=== PATIENT | male | born 1940 | race Caucasian/White ===

== ENCOUNTER 2016-09-05 15:00 | Inpatient (IN) | payer MEDICARE ==
[2016-10-06] MEDS ORDERED: METOCLOPRAMIDE 10 MG TABLET PO ONE (06:00)
[2016-10-06] MEDS ORDERED: FAMOTIDINE 20MG TABLET PO ONE (06:00)
[2016-10-06] MEDS ORDERED: CELECOXIB 100 MG CAPSULE PO ONE (06:00)
[2016-10-06] MEDS ORDERED: VANCOMYCIN HCL 1,000 MG in 0.9 % SODIUM CHLORIDE 250ML 250 ML IVPB ONE (06:00)
[2016-10-06] MEDS ORDERED: ACETAMINOPHEN 1,000 MG/100 ML BTL IV ONE (06:00)
[2016-10-06] MEDS ORDERED: MECLIZINE 25 MG TABLET PO ONE (06:00)
[2016-10-06 12:10] LABS: ABO GROUP A; ANTIBODY SCREEN NEGATIVE (NEGATIVE); RH TYPE POSITIVE
[2016-10-06] MEDS ORDERED: BUPIVACAINE LIPOSOME 266MG/20ML VIAL IV ONE (12:22)
[2016-10-06] MEDS ORDERED: BUPIVACAINE 0.5% W/EPI MPF 30 ML VIAL IVP ONE (12:22)
[2016-10-06] MEDS ORDERED: VANCOMYCIN HCL 1 GM VIAL IVPB ONE (12:22)
[2016-10-06] MEDS ORDERED: TRANEXAMIC ACID 1,000 MG/10 ML ML IV ONE (12:22)
[2016-10-06] MEDS ORDERED: PROPOFOL 10 MG/ML VIAL IV ONE (14:00)
[2016-10-06] MEDS ORDERED: LIDOCAINE 2% MDV (20MG/ML) 20ML VIAL IV ONE (14:00)
[2016-10-06] MEDS ORDERED: DIPHENHYDRAMINE HCL IV 50 MG/ML VIAL IVP ONE (14:00)
[2016-10-06] MEDS ORDERED: MIDAZOLAM HCL 2MG/2ML VIAL IV ONE (14:00)
[2016-10-06] MEDS ORDERED: FENTANYL PF 100MCG/2ML VIAL IV ONE (14:00)
[2016-10-06] MEDS ORDERED: HYDROCODONE/APAP 5/325MG TABLET PO PRN ×2 (14:42)
[2016-10-06] MEDS ORDERED: MAGNESIUM HYDROXIDE 30 ML UDC PO PRN (14:42)
[2016-10-06] MEDS ORDERED: AL HYDROX/MAG HYDROX 30ML UD PO PRN (14:42)
[2016-10-06] MEDS ORDERED: TRAMADOL HCL 50 MG TABLET PO PRN ×2 (14:42)
[2016-10-06] MEDS ORDERED: METOCLOPRAMIDE HCL 10 MG/2 ML VIAL IVP PRN (14:42)
[2016-10-06] MEDS ORDERED: DIPHENHYDRAMINE HCL 25 MG CAPSULE PO PRN (14:42)
[2016-10-06] MEDS ORDERED: ACETAMINOPHEN W/ CODEINE 300MG/60MG TABLET PO PRN ×2 (14:42)
[2016-10-06] MEDS ORDERED: ONDANSETRON HCL IV 4 MG/2 ML VIAL IVP PRN (14:42)
[2016-10-06] MEDS ORDERED: HYDROMORPHONE HCL 2 MG/ML VIAL IM PRN (14:42)
[2016-10-06] MEDS ORDERED: HYDROCODONE/APAP 7.5/325MG TABLET PO PRN ×2 (14:42)
[2016-10-06] MEDS ORDERED: NALOXONE 0.4 MG/1 ML VIAL IVP PRN (14:42)
[2016-10-06] MEDS ORDERED: ACETAMINOPHEN 325 MG TAB PO PRN (14:42)
[2016-10-06] MEDS ORDERED: KETOROLAC 30 MG/ML VIAL IVP PRN ×2 (14:42)
[2016-10-06] MEDS ORDERED: BISACODYL 10 MG SUPP RC PRN (14:42)
[2016-10-06] MEDS ORDERED: PROMETHAZINE HCL 12.5 MG in 0.9 % SODIUM CHLORIDE 100ML 50 ML IVPB PRN (14:42)
[2016-10-06] MEDS ORDERED: MORPHINE SULFATE 5 MG/ML PFS IVP PRN ×4 (14:42)
[2016-10-06] MEDS ORDERED: ACETAMINOPHEN W/ CODEINE 300MG/30MG TABLET PO PRN ×2 (14:42)
[2016-10-06] MEDS ORDERED: ZOLPIDEM TARTRATE 5 MG TABLET PO PRN (14:42)
[2016-10-06] MEDS ORDERED: HYDROMORPHONE HCL 1 MG/ML CPJ IM PRN (15:30)
[2016-10-06] MEDS ORDERED: DEXTROSE 5 % AND 0.9 % NACL 1,000 ML IV PRN (15:30)
[2016-10-06] MEDS: ATORVASTATIN 20 MG TABLET PO SCH (21:20)
[2016-10-06] MEDS: FERROUS SULFATE 325 MG TAB PO SCH (21:21)
[2016-10-06] MEDS: DOCUSATE SODIUM 100 MG CAPSULE PO SCH (21:21)
[2016-10-07] MEDS: VANCOMYCIN HCL 1,000 MG in 0.9 % SODIUM CHLORIDE 250ML 250 ML IVPB SCH ×2 (01:00→12:30)
[2016-10-07 06:33] LABS: HEMOGLOBIN 11.5 gm/dl (14.0-18.0)
[2016-10-07] MEDS: FERROUS SULFATE 325 MG TAB PO SCH ×2 (09:43→21:17)
[2016-10-07] MEDS: CELECOXIB 100 MG CAPSULE PO SCH (09:44)
[2016-10-07] MEDS: ATENOLOL 25 MG TABLET PO SCH (09:44)
[2016-10-07] MEDS: RIVAROXABAN 10 MG TABLET PO SCH (09:44)
[2016-10-07] MEDS: DOCUSATE SODIUM 100 MG CAPSULE PO SCH ×2 (09:47→21:17)
--- NOTE | 2016-10-07 10:11 | Rehab Evaluation ---
Patient Information - Patient Information Diagnosis: OA with TKA right Ordered Treatment: PT Evaluate and Treat Status: Initial Evaluation Surgery: Yes (TKA right) Date of Surgery: 10/06/16 Past Medical/Surgical Hx: PAST MEDICAL/SURGICAL HISTORY Past Surgical History T/A APPENDECTOMY LYMPH NODE EXC. RT SHOULDER SCOPE left knee relacement PMH - Respiratory Hx Respiratory Disorders Yes Hx Pneumonia Yes Comment: chronic sinus drainage PMH - Cardiovascular Hx Cardiovascular Disorders Yes Hx Abnormal EKG Yes Hx Deep Vein Thrombosis Yes: 2004 left leg Hx Irregular Heartbeat Yes: extra beat on meds. Exercise Tolerance Good PMH - Neuro Hx Neurological Disorders No PMH - GI Hx Gastrointestinal Disorders Yes Hx Hepatitis/Jaundice Yes: jaundice as achild PMH - Hx Genitourinary Disorders No PMH - Endocrine Hx Endocrine Disorders No PMH - Musculoskeletal Hx Musculoskeletal Disorders Yes Hx Arthritis Yes Hx Gout Yes PMH - Psych Hx Psychiatric Problems No PMH - Hematology/Oncology Hx Hematology/Oncology Yes Disorders Hx Bruising Yes Hx Cancer Yes Social History: Detail (Lives in single story house with , house is all set- up for after surgery, but patient and feel he would do best in rehab.) Precautions: [place], Fall - Time With Patient Total Time Spent With Patient (Min): 30 Treatment Procedures: Detail (Patient seen in room and already sitting up in chair with cryocuff on knee. Warmed up leg with exercises for marching for hip with resisted flexion and extension lightly then LAQ and ham curls with light resistance to check strength, toe tapping. Sit to stand with CGA only from fairly low chair for his height, ambulated with walker a couple of steps then raised walker to proper height. Ambulate into fernandez about 20 feet then down and up three steps with cues only, CGA with rail and folded walker. Ambulated about 100 more feet down fernandez then back to sit up in chair. Placed cryocuff and compressive stockings, made sure tray table and call light close.) Subjective Information - Subjective Information Per Patient (As above, min pain and has not even had a pain pill today.) Objective Data - Pain Pain Scale Used: Numeric (1 - 10) (2/10) - Mental Status Patient Orientation: Oriented x3 - Visual Perception Appears within normal limits for therapeutic activities - ROM Within normal limits (Even right knee ROM pretty good and -5 degrees extension to 90 degrees flexion.) - Strength/Tone Within normal limits (Quads a little weak but at least 3/5) - Coordination Appears within normal limits for therapeutic activities - Bed Mobility Independent - Transfers Independent - Balance Balance Sitting: Good Balance Standing: Good - Sensation Intact - Gait Detail (Ambulated with walker front wheeled as noted above and already did stairs.) Patient Education - Patient Education Teaching Topic: Equipment Use, Exercise/Activity Response: Return Demonstration Teaching Method: Discussion, Demonstration Teaching Recipient: Patient Barriers To Learning: None Problem List - Problem List Physical Therapy Problem List: Detail (Some impairment in mobility but very little at this time first day after surgery. Gait is improving quickly.) Goals - Goals Physical Therapy Goals: [place] with mobility and gait to be able to go home with family eventually. Prognosis - Prognosis Good (Patient seems to be doing very well with surgery just being yesterday. Has already accomplished stairs and walking quite well.) Plan - Plan Physical Therapy Plan: Continue PT at least BID today, once tomorrow to prepare to go to rehab to finish.
--- NOTE | 2016-10-07 12:07 | RADIOLOGY REPORT ---
EXAM: AP CHEST HISTORY: POST TOTAL KNEE ARTHROPLASTY. TECHNIQUE: AP view of the chest was obtained. Comparison: None. FINDINGS: The lungs are clear. The cardiac silhouette, diaphragm, and osseous structures are unremarkable for age. IMPRESSION: NEGATIVE CHEST EXAMINATION. JOB NUMBER: [id number] MTDD
--- NOTE | 2016-10-07 12:36 | Rehab Evaluation ---
Patient Information - Patient Information Diagnosis: OA with TKA right Ordered Treatment: OT Evaluate and Treat Status: Initial Evaluation Surgery: Yes (TKA right) Date of Surgery: 10/06/16 Past Medical/Surgical Hx: PAST MEDICAL/SURGICAL HISTORY Past Surgical History T/A APPENDECTOMY LYMPH NODE EXC. RT SHOULDER SCOPE left knee relacement PMH - Respiratory Hx Respiratory Disorders Yes Hx Pneumonia Yes Comment: chronic sinus drainage PMH - Cardiovascular Hx Cardiovascular Disorders Yes Hx Abnormal EKG Yes Hx Deep Vein Thrombosis Yes: 2004 left leg Hx Irregular Heartbeat Yes: extra beat on meds. Exercise Tolerance Good PMH - Neuro Hx Neurological Disorders No PMH - GI Hx Gastrointestinal Disorders Yes Hx Hepatitis/Jaundice Yes: jaundice as achild PMH - Hx Genitourinary Disorders No PMH - Endocrine Hx Endocrine Disorders No PMH - Musculoskeletal Hx Musculoskeletal Disorders Yes Hx Arthritis Yes Hx Gout Yes PMH - Psych Hx Psychiatric Problems No PMH - Hematology/Oncology Hx Hematology/Oncology Yes Disorders Hx Bruising Yes Hx Cancer Yes Premorbid Status: Detail (Pt lives with spouse in a 1 story house with a basement. He reports he stays on the first floor. He has 3 steps and 1 railing at the entrance, a tub/shower combination with 2 grab bars (he usually stands to shower), an elevated toilet seat without a grab bar. Prior to surgery he was Ind with showering, dressing, yard work and ambulating without an assistive device. He has a 2 wheeled walker and a straight cane.) Social History: Detail Precautions: [place], Fall - Time With Patient Total Time Spent With Patient (Min): 60 Treatment Procedures: Detail (OT eval low complexity) Subjective Information - Subjective Information Per Patient Objective Data - Pain Pain Present: Yes (0.5/10 pain in right knee) - Mental Status Patient Orientation: Oriented x3 - Visual Perception Appears within normal limits for therapeutic activities (Pt reports he wears glasses at all times.) - ROM Within normal limits (Freddy UE AROM WNL) - Strength/Tone Within normal limits (Freddy UE MMT 5/5) - Coordination Appears within normal limits for therapeutic activities - Bed Mobility Independent (Ind with supine to sit) - Transfers Independent (Ind with sit to stand from EOB, chair and toilet surfaces using walker) - Balance Balance Sitting: Good Balance Standing: Good - Sensation Intact - Gait Detail (Pt ambulated 20 feet x 2 with 2 wheeled walker Indly.) - ADL's/IADL's Detail (Pt able to demonstrate Ind with modified technique for LE dressing including briefs, pants, socks and tennis shoes, completed toileting Indly, able to stand at sink and complete oral hygiene and washing face and hands Indly.) Therapy Assessment - Therapy Assessment Detail (Pt Ind with LE dressing, functional mobility and grooming/hygiene. UE strength and ROM WNL.) Problem List - Problem List Physical Therapy Problem List: Detail (Some impairment in mobility but very little at this time first day after surgery. Gait is improving quickly.) Occupational Therapy Problem List: Detail (No current OT problems identified.) Goals - Goals Physical Therapy Goals: [place] with mobility and gait to be able to go home with family eventually. Occupational Therapy Goals: No OT goals at this time. Prognosis - Prognosis Good Plan - Plan Physical Therapy Plan: Continue PT at least BID today, once tomorrow to prepare to go to rehab to finish. Occupational Therapy Plan: No inpatient OT recommended at this time. Thank you for this referral.
--- NOTE | 2016-10-07 16:17 | Physical Therapy Tx Note ---
Physical Therapy Tx Note - Treatment Note Tolerated: Good (Patient doing very well with mobility and able to walk even further this afternoon than this am. Pain is controlled and patient getting up to bathroom with nursing assist easily.) Total Time Spent With Patient: 30 Physical Therapy Tx Note: Detail (Patient getting up with nursing to bathroom when entered room, waited at door for patient to be done then ambulated with FWW in fernandez WBAT 120 feet or so then back to bed, independent into bed then performed knee exercises: heel slides, quad, ham and glut sets, SLR and ankle pumps.) Physical Therapy Problem List: Detail (Some impairment in mobility but very little at this time first day after surgery. Gait is improving quickly.) Physical Therapy Goals: [place] with mobility and gait to be able to go home with family eventually. Prognosis: Good (Patient doing extremely well with mobility and gait and has passed skills except endurance a little decreased.) Physical Therapy Plan: Continue PT at least BID today, once tomorrow to prepare to go to rehab to finish.
[2016-10-07] MEDS: ATORVASTATIN 20 MG TABLET PO SCH (21:17)
[2016-10-08 06:28] LABS: HEMATOCRIT 34.5 % (42.0-52.0)
[2016-10-08] MEDS ORDERED: TAMSULOSIN HCL 0.4 MG CAP.ER.24H PO ONE (08:44)
--- NOTE | 2016-10-08 09:16 | Physical Therapy Tx Note ---
Physical Therapy Tx Note - Treatment Note Tolerated: Good Total Time Spent With Patient: 30 Physical Therapy Tx Note: Detail (Pt in bed upon arrival, awake/alert, cooperative for therapy. Assisted pt to remove cryopak from R knee; he independently removed intermittent compression stockings. Independent w/bed mobility w/HOB elevated. Required assist to get pants on over legs, independently pulled them up after coming to standing at front-wheeled walker independently. Ambulated 360 feet w/front wheeled walker w/SBA, WBAT R LE. Returned to bed, independently removed gown and donned T-shirt. Back into bed w /CGA for R LE; reapplied cryopak and IC stockings. Reported fatigue. Call light placed in reach. Nrsg notified.) Physical Therapy Problem List: Detail (1. Activity intolerance. 2. Impaired R LE strength and R knee ROM.) Physical Therapy Goals: [place] with mobility: Independent w/bed mobility and transfers. Independent with gait to be able to go home with family eventually: Requires supervision due to impaired R LE strength and ROM, and impaired activity tolerance. Prognosis: Good Physical Therapy Plan: Pt anticipates staying tonight in preparation to transfer to inpatient rehab tomorrow. We will monitor for any further needs.
[2016-10-08] MEDS: FERROUS SULFATE 325 MG TAB PO SCH (10:01)
[2016-10-08] MEDS: CELECOXIB 100 MG CAPSULE PO SCH (10:01)
[2016-10-08] MEDS: ATENOLOL 25 MG TABLET PO SCH (10:01)
[2016-10-08] MEDS: DOCUSATE SODIUM 100 MG CAPSULE PO SCH (10:01)
[2016-10-08] MEDS: RIVAROXABAN 10 MG TABLET PO SCH (10:04)
[2016-10-08 11:06] LABS: URINE APPEARANCE CLEAR; URINE BILIRUBIN NEGATIVE (NEGATIVE); URINE BLOOD TRACE-I (NEGATIVE); URINE COLOR YELLOW; URINE GLUCOSE (UA) NEGATIVE (NEGATIVE); URINE KETONE 15 mg/dL (NEGATIVE); URINE LEUKOCYTE ESTERASE NEGATIVE (NEGATIVE); URINE NITRITE NEGATIVE (NEGATIVE); URINE PROTEIN NEGATIVE (NEGATIVE)
[2016-10-08 11:17] LABS: URINE EPITHELIAL CELLS NONE SEEN (FEW); URINE RBC 0 - 2 (NONE SEEN); URINE WBC NONE SEEN (0-2/hpf)
--- NOTE | 2016-10-08 13:38 | Discharge Note ---
VTE H&P Assessment - Risk for VTE Risk for VTE: Yes Risk Level: Moderate Risk Assessment Date: 10/06/16 Risk Assessment Time: 19:00 VTE Orders Placed or Will Be Placed: Yes Discharge Medications - Discharge Medications Home Medications: Ambulatory Orders Acetaminophen [Tylenol 325Mg] 650 mg PO Q4H PRN 10/08/16 [Last Taken Unknown] Atenolol [Tenormin] 25 mg PO DAILY tab 10/08/16 [Last Taken Unknown] Discharge Note - Date Date of Discharge Note: 10/08/16 Disposition: Home, Self-Care Condition: (1) Good Additional Instructions: Call Dr. Jones's office when you get home [phone] to schedule first outpatient physical therapy appointment and appointment to have cover removed from knee. They will see you in office one week after discharge. [place] will be removed at follow up appointment with Dr. Jones. pain meds will be called in by Dr. Jones continue home meds Referrals: RAFAT KRUGER [Primary Care Provider] - Activity at Discharge: Increase Activity as Tolerated Diet at Discharge: Low Salt Diet
--- NOTE | 2016-10-08 14:08 | Discharge Note ---
VTE H&P Assessment - Risk for VTE Risk for VTE: Yes Risk Level: Moderate Risk Assessment Date: 10/06/16 Risk Assessment Time: 19:00 VTE Orders Placed or Will Be Placed: Yes Discharge Medications - Discharge Medications Home Medications: Ambulatory Orders Acetaminophen [Tylenol 325Mg] 650 mg PO Q4H PRN 10/08/16 [Last Taken Unknown] Atenolol [Tenormin] 25 mg PO DAILY tab 10/08/16 [Last Taken Unknown] Ibuprofen [Motrin 600Mg] 600 mg PO Q8H #30 tablet 10/08/16 [Last Taken Unknown] Tamsulosin HCl [Flomax] 0.4 mg PO DAILY #30 cap.er.24h 10/08/16 [Last Taken Unknown] Discharge Note - Date Date of Discharge Note: 10/08/16 Disposition: Home, Self-Care Condition: (1) Good Additional Instructions: Call Dr. Jones's office when you get home [phone] to schedule first outpatient physical therapy appointment and appointment to have cover removed from knee. They will see you in office one week after discharge. Nathaniel will be removed at follow up appointment with Dr. Jones. pain meds will be called in by Dr. Jones continue home meds Prescriptions: Ibuprofen [Motrin 600Mg] 600 mg PO Q8H #30 tablet Tamsulosin HCl [Flomax] 0.4 mg PO DAILY #30 cap.er.24h Referrals: RAFAT KRUGER [Primary Care Provider] - Activity at Discharge: Ambulate Only With Your Walker, Increase Activity as Tolerated
--- NOTE | 2016-10-09 14:00 | Discharge Summary ---
DATE OF ADMISSION: 10/06/2016 DATE OF DISCHARGE: 10/08/2016 DISCHARGE DIAGNOSES: 1. Postop right knee replacement. 2. Hypertension. 3. Dysuria and frequency of urination. 4. Possible benign prostatic hyperplasia. Attending physician: Rick Graves DO REASON FOR HOSPITALIZATION: This is a 76-year-old male who was admitted to the hospital for a knee replacement. Medical management was requested by Dr. Jones and to follow along the patient for hypertension, urinary problems, and any other medical issues that may come up. On the day of discharge he was doing much better, doing very well in physical therapy. He will be going to outpatient physical therapy through Dr. Jones's office. If he needs more pain medication, that can be filled through Dr. Jones's office. SIGNIFICANT FINDINGS: UA was negative. Lab work unremarkable. His hemoglobin was 12.0 on 10/08/2016. The patient was doing very well in physical therapy. There was some thought of being in the swing bed program, however at this point he is doing so well he does not qualify for the swing bed program. CONDITION ON DISCHARGE: Improved. DISCHARGE INSTRUCTIONS: Follow up with Dr. Jones in the next week, that will be scheduled through nursing. Follow up with physical therapy through Dr. Jones's office. The patient requests only Motrin for the pain, 600 mg every 8 hours. Also, if he needs more pain control he can call Dr. Jones's office. He has also been started on Flomax 0.4 mg once a day because of his frequent urination through the night. His urine was negative. I think it is because of the benign prostatic hyperplasia. I will give him a 30 day prescription of that. He can follow up with his primary doctor who can decide if this should be continued or not. Wound care will be addressed when he sees Dr. Jones in the office in about one week. CHERYL
--- NOTE | 2016-10-13 10:11 | Operative Note ---
DATE OF SURGERY: 10/06/2016 PREOPERATIVE DIAGNOSIS: Right knee arthrosis. POSTOPERATIVE DIAGNOSIS: Right knee arthrosis. OPERATION: Right total knee arthroplasty. Surgeon: Junior Jones MD Anesthesia: Spinal, Colin SURESH. COMPLICATIONS: None. ESTIMATED BLOOD LOSS: Minimal. TIME: 60 minutes OPERATIVE FINDINGS: [id number] medial compartment arthrosis. COMPONENTS PLACED: A 2g vancomycin cemented [employer] II Oxinium size 8 femoral component, a size 8 tibial baseplate, a 9 mm thick tibial poly insert, and 35 mm cemented patellar component. Indications: This is an 81-year-old male who is well known to nh status post left knee arthroplasty done about 2-1/2 years ago, now scheduled for the right. I explained all risks and benefits in detail for the diagnosis and procedure including but not limited to infection, nerve injury, vessel injury, persistent pain, stiffness, numbness, tingling in the knee, periprosthetic fracture, need for resection arthroplasty if components are infected or loosen, blood clot, and need for further procedures. All his questions were answered. The course was outlined. He agreed to proceed. PROCEDURE: The patient brought to the OR, placed in the supine position, prepped for surgery. Spinal anesthesia induced. The right lower extremity prepped and draped in sterile fashion. Right knee prepped again with ChloraPrep and draped. Intraoperative timeout was performed. Next, the knee was injected with 0.5% Marcaine with epinephrine. The leg was exsanguinated with Esmarch. The knee was then flexed, tourniquet inflated to 250 mmHg pressure. Next, skin and subcutaneous tissue dissected down. Medial and lateral skin flaps. Incised the capsule medially along the medial border of the patella to the tibial tubercle. Incised the vastus medialis in line with its fibers in a mid vastus approach. I partially resected the retropatellar fat pad, everted the patella, elevated the capsule subperiosteally and medially, flexed the knee. He had [id number] erosive medial compartment arthrosis as well as moderate and lateral patellofemoral. Drilled intracondylar drill hole and inserted intramedullary guide jeannette and the 6-degree cutting block and aligned it , pinned it in +2 mm position and cut the distal femoral condyle. Next, we placed a sizing jig on the distal femoral condyle and sized it to size 8. Through previously-placed pin holes, the size 8 cutting jig down in the anterior cut so it came out flush without notching. After adjusting and making 2 cuts, we had good cut there. We got pinned in place and cut the remaining chamfer cuts in the usual fashion. Placed a size trial 8 component, centered it, pinned it, removed osteophytes, inserted the resection collet, reamed down and box osteotomed out with the cruciate bone block. Next, attention was turned to the tibia. Placed the extra- alignment jig in the tibia, seated the spikes in the tubercular groove 2 fingerbreadths distal to the anterior tibial cortex. Slight posterior slope, referenced for a 7 mm cut off the higher lateral plateau. We pinned the cutting jig provisionally through anterior-posterior cuts. We checked alignment of the cutting jig using a drop jeannette. The handle was centered on the tibial anatomic access and then crosspinned the cutting jig completing its fixation, and cut the tibia. Next, we removed osteophytes of the posterior femoral condyle using a curved osteotome. Checked the flexion/extension gaps. They were symmetric with the 9 mm thick poly insert. About 2-3 mm of varus/valgus laxity flexion/extension. Overall alignment in extension was anatomic in valgus orientation with alignment jeannette centered on the hip joint and ankle joint. Put the knee in flexion and sized the tibial baseplate size 8 replaced all trial components, set the rotation tibial basplate again extension using the alignment jeannette centered on hip joint and ankle joint. Marked electrocautery shabazz on the anterior tibial cortex baseplate. Attention was turned to the patella and measured the patella to be 26 mm with the cutting jig at 17 mm to allow for a 9 mm thick insert. Cut the patella, remeasured right on 17. Chamfered off left patelal facet and measured to be 35 medialized as much as possible, drilled 3 peg holes for the trial patella. Mixed cement. The patella tracked nicely handsfree. Full extension and flexion to 140 degrees , and again, symmetric flexion/extension gaps. Put the knee in flexion, seated the tibial baseplate off the previously placed electrocautery shabazz, pinned it and reamed out and punched out the keel hole. Next placed a bone plug in femoral canal hole. I irrigated copiously with pulse lavage and antibiotic solution, changed gloves, put on clean sheets. Then impacted down the tibial component and femoral component, removed excess cement. Placed the trial tibial poly liner, clamped down on the patellar component and held until cement hardened and then removed excess cement. Distracted with the bone hook and sponge. Then we injected several needle sticks of 0.5% Marcaine with epinephrine, tranexamic acid, and Exparel in and around the medial and lateral capsule, medial and lateral periosteum, condylar and fat pad and vastus medialis and subcutaneous area and around the surgical site. Next, distracted with the bone hook, and sponge, we insert the real tibia poly insert and verify that it was interlocked medially and laterally. We found our range of motion was still the same. Irrigated copiously. We closed the capsule and vastus medialis with running #2 quill, closed skin with 2-0 Vicryl, and then nidhi. Sterile dressing applied and Serjio wrap. Tolerated the procedure well. No in traoperative complications. Sponge, needle, and blade counts correct. Recovery room stable, neurovascularly intact. Can be discharged to the floor and can likely be discharged in 3 days. CHERYL
== END 2016-10-08 15:15 | disposition home or self-care (01) | DRG 470 ==
LOC: MEDSURG 10-06 11:10
PROVIDERS: ADMIT Orthopaedic Surgery; ATTEND Orthopaedic Surgery
PROC: 0SRC0J9 Replacement of Right Knee Joint with Synthetic Substitute, Cemented, Open Approach (ICD-10-PCS; principal; 2016-10-06 13:30)
DX: M17.11 Unilateral primary osteoarthritis, right knee (principal); E78.00 Pure hypercholesterolemia, unspecified; R35.0 Frequency of micturition
CPT/HCPCS: 71010; 81001; 85014; 85018; 86850; 86900; 86901; 94761; 97110; 97116; 97165; 97530; J1200; J7050